=== PATIENT | male | born 1995 | race Caucasian/White ===

== ENCOUNTER 2025-01-12 16:38 | Inpatient (IN) | payer OTHER ==
[~2025-01-12] VITALS: Ht 175.3 cm; Wt 90.7 kg
[2025-01-12 17:19] LABS: PLATELET COUNT (AUTO) 261 K/uL (150-450); RED BLOOD CELL COUNT(AUTO) 5.07 MIL/uL (4.5-6.0); RED CELL DISTRIBUTION WIDTH 12.7 % (11.5-15.0); WHITE BLOOD COUNT (AUTO) 12.2 K/uL (4.3-11.0)
[2025-01-12 17:26] LABS: CALCIUM, SERUM 9.1 mg/dL (8.5-10.1); CREATININE 1.1 mg/dL (0.6-1.3); SODIUM SERUM 135 mmol/L (136-145); UREA NITROGEN, BLOOD 12 mg/dL (7-18)
[2025-01-12] MEDS: IV NS 0.9% 1,000 ML BAG IV ONE (18:25)
[2025-01-12] MEDS ORDERED: ACETAMINOPHEN 325 MG TABLET PO PRN (20:30)
[2025-01-12] MEDS ORDERED: MAG HYDROX/AL HYDROX/SIMETH 30 ML UDC PO PRN (20:30)
[2025-01-12] MEDS ORDERED: Z GUARD REMEDY 4 OZ OINT TP PRN (20:30)
[2025-01-12] MEDS ORDERED: ONDANSETRON HCL/PF 4 MG/2 ML VIAL IVP PRN (20:30)
[2025-01-12] MEDS ORDERED: MAGNESIUM HYDROXIDE 30 ML UDC PO PRN (20:30)
[2025-01-12 21:45] VITALS: BP 123/79; TEMP 98.8; O2SAT 99
[2025-01-12] MEDS: ASPIRIN 81 MG TAB.CHEW PO SCH (23:58)
[2025-01-13] VITALS: BP_SYST 110; BP_SYST 122; BP_DIAS 65; TEMP 97.9; TEMP 98.1; O2SAT 96; O2SAT 97
[2025-01-13 04:00] VITALS: BP 110/65; TEMP 97.9; O2SAT 97
[2025-01-13 08:00] VITALS: BP 114/66; TEMP 97.9; O2SAT 99
[2025-01-13 08:22] LABS: PLATELET COUNT (AUTO) 216 K/uL (150-450); RED BLOOD CELL COUNT(AUTO) 4.78 MIL/uL (4.5-6.0); RED CELL DISTRIBUTION WIDTH 12.7 % (11.5-15.0); WHITE BLOOD COUNT (AUTO) 8.2 K/uL (4.3-11.0)
[2025-01-13 08:40] LABS: CALCIUM, SERUM 9.0 mg/dL (8.5-10.1); CREATININE 0.7 mg/dL (0.6-1.3); PHOSPHORUS 3.9 mg/dL (2.5-4.9); SODIUM SERUM 142.0 mmol/L (136-145); UREA NITROGEN, BLOOD 12.0 mg/dL (7-18)
[2025-01-13 09:28] VITALS: BP_SYST 108; BP_SYST 109; BP_SYST 112; BP_DIAS 64; BP_DIAS 68; BP_DIAS 79
[2025-01-13] MEDS ORDERED: SOTA120T PO (10:15)
[2025-01-13] MEDS ORDERED: ASPI-1169 PO (10:15)
[2025-01-13] MEDS: SOTALOL AF 80 MG TABLET PO SCH (11:53)
[2025-01-13 12:00] VITALS: BP 108/67; TEMP 98; O2SAT 97
[2025-01-13 16:00] VITALS: BP 110/72; TEMP 97.9; O2SAT 100
== END 2025-01-13 16:44 | disposition home or self-care (01) | DRG 303 ==
LOC: EDSEX 16:47 → ER 16:47 → TELE1 20:52
PROVIDERS: ADMIT Nurse Practitioner Acute Care; ATTEND Internal Medicine
DX: I25.10 Atherosclerotic heart disease of native coronary artery without angina pectoris (principal); I42.9 Cardiomyopathy, unspecified; I48.0 Paroxysmal atrial fibrillation; F41.9 Anxiety disorder, unspecified; D72.829 Elevated white blood cell count, unspecified; Z95.810 Presence of automatic (implantable) cardiac defibrillator; I50.9 Heart failure, unspecified; R55 Syncope and collapse
CPT/HCPCS: 36415; 71045-TC; 80048-TC; 83735-TC; 84100-TC; 84484-TC; 85025-TC; 93307-TC; G0378